=== PATIENT | male | born 1985 | race Caucasian/White ===

== ENCOUNTER 2017-04-21 23:01 | Emergency (ER) | payer SELFPAY ==
[~2017-04-21] VITALS: Ht 188 cm; Wt 80.0 kg
[~2017-04-21 23:01] MED LIST: PENICILLN VK500 M1 PO; ROBITUSSIN AC10 ML PO; SUBOXONE1 MI1 SL
[2017-04-22] MEDS ORDERED: AUGMENTIN875TAB PO (00:17)
[2017-04-22 00:56] VITALS: BP 158/108
== END 2017-04-22 01:01 | disposition home or self-care (01) | DRG 153 ==
LOC: ED 23:01
DX: J02.9 Acute pharyngitis, unspecified (principal); F17.210 Nicotine dependence, cigarettes, uncomplicated

== ENCOUNTER 2017-05-13 06:42 | Emergency (ER) | payer SELFPAY ==
[~2017-05-13] VITALS: Ht 188 cm; Wt 83.0 kg
[~2017-05-13 06:42] MED LIST changes: +AUGMENTIN875TAB PO
[2017-05-13] MEDS ORDERED: CLEOCIN150 MG PO (06:51)
[2017-05-13] MEDS ORDERED: AUGMENTIN875TAB PO (07:25)
[2017-05-13 07:29] VITALS: BP 139/97
== END 2017-05-13 07:34 | disposition home or self-care (01) | DRG 159 ==
LOC: ED 06:42
DX: K02.9 Dental caries, unspecified (principal); F17.210 Nicotine dependence, cigarettes, uncomplicated; R59.0 Localized enlarged lymph nodes; F43.10 Post-traumatic stress disorder, unspecified

== ENCOUNTER 2017-06-30 09:05 | Emergency (ER) | payer SELFPAY ==
[~2017-06-30] VITALS: Ht 188 cm; Wt 81.0 kg
[~2017-06-30 09:05] MED LIST changes: +CLEOCIN150 MG PO
[2017-06-30 09:55] LABS: HEMATOCRIT 43.8 % (39.0-50.0); HEMOGLOBIN 14.6 g/dl (14.0-18.0); IMMATURE GRANULOCYTES 0.4 % (0.0-1.0); MEAN CORPUSCULAR HGB 29.7 pG CALC (26.0-32.0); MEAN CORPUSCULAR HGB CONC 33.3 g/L CALC (32.0-36.0); NEUT# 7.75 thou/uL (1.82-7.42); RED BLOOD COUNT 4.92 mill/uL (4.70-6.10); RED CELL DISTRI WIDTH 12.2 % (11.5-15.5)
[2017-06-30 10:18] LABS: ALBUMIN 4.8 g/dL (3.2-5.0); ALKALINE PHOSPHATASE 71 u/l (38-126); ANION GAP 19 (6-22 (CALC)); BILIRUBIN, TOTAL 1.1 mg/dL (0.0-1.4); BUN 14 mg/dL (9-20); BUN/CREATININE RATIO 15 (12-20 (CALC)); CALCIUM 9.9 mg/dL (8.4-10.2); CARBON DIOXIDE 24 mmol/l (22-30); CHLORIDE 104 mmol/l (95-108); CREATININE 0.9 mg/dL (0.7-1.3); GFR > 60 ML/MIN (>=60 (CALC)); GFR FOR AFR.AMER. > 60 ML/MIN (>=60 (CALC)); GLUCOSE 125 mg/dL (75-110); LIPASE 36 u/l (23-300); POTASSIUM 4.1 mmol/l (3.5-5.1); SGOT/AST 101 u/l (17-59); SGPT/ALT 128 u/l (21-72); SODIUM 142 mmol/l (137-146); TOTAL PROTEIN 7.9 g/dL (6.3-8.2)
[2017-06-30] MEDS ORDERED: CIPRO XR500 MG PO (12:32)
[2017-06-30] MEDS ORDERED: MOTRIN400 MG PO (12:32)
[2017-06-30] MEDS ORDERED: TAMSULOSIN0.4 MG PO (12:32)
[2017-06-30 12:46] VITALS: BP 145/77
[2017-06-30 13:14] LABS: URINE BILIRUBIN - DIPSTICK NEGATIVE (NEGATIVE); URINE BLOOD DIPSTICK SMALL (NEGATIVE); URINE CLARITY CLEAR; URINE COLOR YELLOW; URINE GLUCOSE - DIPSTICK NEGATIVE (NEGATIVE); URINE KETONE NEGATIVE (NEGATIVE); URINE LEUK ESTERASE NEGATIVE (NEGATIVE); URINE NITRITE - DIPSTICK NEGATIVE (Negative); URINE PH 6.5 (4.5-8.0); URINE PROTEIN - DIPSTICK NEGATIVE (NEG-TRACE); URINE SPECIFIC GRAVITY <=1.005; URINE UROBILINOGEN - DIPSTICK 0.2 E.U./dL (0.2)
[2017-06-30 14:35] LABS: URINE SQUAMOUS EPITHELIAL CELL FEW EPI/hpf (0-FEW)
== END 2017-06-30 13:06 | disposition home or self-care (01) | DRG 694 ==
LOC: ED 09:05
PROVIDERS: Family Medicine
DX: N20.0 Calculus of kidney (principal); F17.210 Nicotine dependence, cigarettes, uncomplicated; F43.10 Post-traumatic stress disorder, unspecified

== ENCOUNTER 2017-09-03 05:22 | Emergency (ER) | payer SELFPAY ==
[~2017-09-03] VITALS: Ht 188 cm; Wt 86.3 kg
[~2017-09-03 05:22] MED LIST changes: +CIPRO XR500 MG PO; +MOTRIN400 MG PO; +TAMSULOSIN0.4 MG PO
[2017-09-03] MEDS ORDERED: AMOXICILLIN500 M2 PO (05:43)
[2017-09-03 05:50] VITALS: BP 159/92
== END 2017-09-03 05:54 | disposition home or self-care (01) | DRG 158 ==
LOC: ED 05:22
DX: K02.9 Dental caries, unspecified (principal); F11.20 Opioid dependence, uncomplicated; F43.10 Post-traumatic stress disorder, unspecified

== ENCOUNTER 2019-03-22 14:52 | Emergency (ER) | payer SELFPAY ==
[~2019-03-22] VITALS: Ht 188 cm; Wt 70.0 kg
[~2019-03-22 14:52] MED LIST changes: +AMOXICILLIN500 M2 PO
[2019-03-22] MEDS ORDERED: SUBOXONE1 MI1 SL (15:10)
[2019-03-22] MEDS ORDERED: NAPROSYN500 MG PO (15:35)
[2019-03-22 15:39] VITALS: BP 147/87
== END 2019-03-22 15:51 | disposition home or self-care (01) | DRG 552 ==
LOC: ED 14:52
DX: S23.3XXA Sprain of ligaments of thoracic spine, initial encounter (principal); X58.XXXA Exposure to other specified factors, initial encounter

== ENCOUNTER 2019-07-29 23:33 | Emergency (ER) | payer SELFPAY ==
[~2019-07-29 23:33] MED LIST changes: +NAPROSYN500 MG PO
== END 2019-07-30 02:00 | disposition home or self-care (01) | DRG 563 ==
LOC: ED 23:59
DX: S39.012A Strain of muscle, fascia and tendon of lower back, initial encounter (principal); M54.42 Lumbago with sciatica, left side

== ENCOUNTER 2019-12-29 | Emergency (ER) | payer SELFPAY ==
[2019-12-29] MEDS ORDERED: SUBOXONE SL (17:12)
--- NOTE | 2020-01-02 09:20 | NUR ---
Notified patient of Covid results (Negative.) Advised that patient should follow up with PCP or return to ED for urgent issues. Advised patient to return to ED or PCP with fever or SOB. Patient states he has minor chest congestion and "sniffles". Advised to continue with all Covid prevention measures including mask while in public, social distancing and fequent handwashing. Patient verbalized understanding.
== END 2019-12-29 18:36 | disposition home or self-care (01) | DRG 866 ==
DX: B34.9 Viral infection, unspecified (principal); Z20.828 Contact with and (suspected) exposure to other viral communicable diseases

== ENCOUNTER 2023-04-13 17:48 | Emergency (ER) | payer SELFPAY ==
[~2023-04-13] VITALS: Ht 188 cm; Wt 95.0 kg
[2023-04-13] VITALS (15 sets, daily range): BP systolic 111–142; BP diastolic 70–92
[~2023-04-13 17:48] MED LIST changes: +SUBOXONE SL
[2023-04-13 18:23] LABS: BASO% 0.6 % (0-3); EOS% 3.4 % (0-8); HEMATOCRIT 46.6 % (39.0-50.0); IMMATURE GRANULOCYTES 0.1 % (0.0-5.0); MEAN CELL VOLUME 93.2 fL CALC (80.0-100.0); MEAN CORPUSCULAR HGB CONC 32.2 g/dL CAL (32.0-36.0); MONO% 7.5 % (2-13); NEUT# 5.73 thou/uL (1.82-7.42); NEUT% 63.4 % (42-76); RED CELL DISTRI WIDTH 13.5 % (11.5-15.5)
[2023-04-13 18:37] LABS: ALBUMIN 4.7 g/dL (3.2-5.0); BILIRUBIN, TOTAL 1.5 mg/dL (0.2-1.3); CREATININE 1.6 mg/dL (0.7-1.3); POTASSIUM 3.8 mmol/l (3.5-5.1); TOTAL PROTEIN 7.7 g/dL (6.3-8.2)
[2023-04-13 18:57] LABS: URINE BILIRUBIN - DIPSTICK NEGATIVE (NEGATIVE); URINE COLOR YELLOW; URINE GLUCOSE - DIPSTICK NEGATIVE (NEGATIVE); URINE KETONE NEGATIVE (NEGATIVE)
[2023-04-13 18:58] LABS: URINE BLOOD DIPSTICK TRACE-INTACT (NEGATIVE); URINE LEUK ESTERASE SMALL (NEGATIVE); URINE NITRITE - DIPSTICK NEGATIVE (Negative); URINE PH 6.5 (4.5-8.0); URINE PROTEIN - DIPSTICK NEGATIVE (NEG-TRACE); URINE UROBILINOGEN - DIPSTICK 0.2 E.U./dL (0.2)
[2023-04-13 19:04] LABS: URINE SQUAMOUS EPITHELIAL CELL RARE EPI/hpf (0-FEW)
[2023-04-13 19:08] LABS: TSH, 3RD GENERATION 3.71 uIU/mL (0.47 - 4.68)
[2023-04-13] MEDS ORDERED: KEFLEX500 MG PO (21:09)
== END 2023-04-13 21:53 | disposition home or self-care (01) | DRG 880 ==
LOC: ED 17:48
PROVIDERS: Family Medicine
DX: F41.9 Anxiety disorder, unspecified (principal); N39.0 Urinary tract infection, site not specified; R53.83 Other fatigue

== ENCOUNTER 2023-05-02 18:39 | Emergency (ER) | payer OTHER ==
[~2023-05-02] VITALS: Ht 185.4 cm; Wt 86.2 kg
[2023-05-02] VITALS (8 sets, daily range): BP systolic 105–133; BP diastolic 67–78
[~2023-05-02 18:39] MED LIST changes: +KEFLEX500 MG PO
[2023-05-02] MEDS ORDERED: CYCLOBENZAPRINE10 MG PO (20:51)
[2023-05-02] MEDS ORDERED: EC-NAPROXEN500 MG PO (20:51)
== END 2023-05-02 21:05 | disposition home or self-care (01) | DRG 552 ==
LOC: ED 18:39
DX: M62.830 Muscle spasm of back (principal); R07.9 Chest pain, unspecified; R07.81 Pleurodynia; S80.12XA Contusion of left lower leg, initial encounter; I10 Essential (primary) hypertension; F17.210 Nicotine dependence, cigarettes, uncomplicated; F17.290 Nicotine dependence, other tobacco product, uncomplicated; V53.5XXA Driver of pick-up truck or van injured in collision with car, pick-up truck or van in traffic accident, initial encounter

== ENCOUNTER 2023-05-09 05:21 | Emergency (ER) | payer OTHER ==
[~2023-05-09] VITALS: Ht 185.4 cm; Wt 81.0 kg
[~2023-05-09 05:21] MED LIST changes: +CYCLOBENZAPRINE10 MG PO; +EC-NAPROXEN500 MG PO
[2023-05-09 05:27] VITALS: BP 126/85
[2023-05-09 05:30] VITALS: BP 113/71
[2023-05-09 05:45] VITALS: BP 111/73
[2023-05-09 06:48] VITALS: BP 111/73
== END 2023-05-09 06:45 | disposition home or self-care (01) | DRG 552 ==
LOC: ED 05:21
DX: M62.830 Muscle spasm of back (principal); I10 Essential (primary) hypertension; F17.200 Nicotine dependence, unspecified, uncomplicated; V89.2XXA Person injured in unspecified motor-vehicle accident, traffic, initial encounter

== ENCOUNTER 2023-05-20 21:36 | Emergency (ER) | payer OTHER ==
[~2023-05-20] VITALS: Ht 185.4 cm; Wt 95.0 kg
[2023-05-20] MEDS ORDERED: LOPRESSOR 550 MG/TAB PO (21:53)
[2023-05-20] MEDS ORDERED: BUPROPION HCL150 MG PO (21:53)
[2023-05-20 22:00] VITALS: BP 123/76
[2023-05-20 22:30] VITALS: BP 117/75
[2023-05-20] MEDS ORDERED: GABAPENTIN300 M2 PO (22:31)
[2023-05-20] MEDS ORDERED: MOTRIN800 MG PO (22:31)
[2023-05-20] MEDS ORDERED: MEDDOSEPAK PO (22:31)
[2023-05-20] MEDS ORDERED: METHOCARBAMOL500 MG PO (22:31)
[2023-05-20 22:52] VITALS: BP 117/75
== END 2023-05-20 23:00 | disposition home or self-care (01) | DRG 74 ==
LOC: ED 21:36
DX: M54.10 Radiculopathy, site unspecified (principal); V49.9XXA Car occupant (driver) (passenger) injured in unspecified traffic accident, initial encounter